=== PATIENT | female | born 1970 | race Caucasian/White ===

== ENCOUNTER 2018-11-17 13:04 | Outpatient (CLI) | payer OTHER, SELFPAY ==
[2018-11-17 13:57] LABS: Abs Immature Grans 0.01 k/cumm (0.0-0.09); Absolute Basophil Count 0.04 k/cumm (0.0-0.2); Absolute Eosinophil Count 0.09 k/cumm (0.0-0.7); Absolute Lymphocyte Count 2.09 k/cumm (1.2-3.4); Absolute Neutrophil Count 4.06 k/cumm (1.2-6.7); Basophils % 0.6; Eosinophils % 1.4; HCT 38.6 % (36.0-46.0); Immature Grans % 0.2; Lymphocytes % 31.7; Mean Corp. HGB Concentration 33.7 g/dL (32.0-36.0); Mean Corpuscular Hemoglobin 32.9 pg (27.0-33.0); Mean Corpuscular Volume 97.7 fL (80-95); Mean Platelet Volume 11.9 fL (8.0-11.0); Monocytes % 4.6; Neutrophils % 61.5; Platelet Count 248 x1000/uL (130-400); RBC 3.95 m/cumm (4.00-5.20); White Blood Cell Count 6.59 k/cumm (4.4-10.8)
[2018-11-17 14:37] LABS: C-Reactive Protein 0.19 mg/dL (0.0-0.3); TSH 1.08 uIU/mL (0.358-3.74)
== END 2018-11-17 13:24 ==
PROVIDERS: PCP Emergency Medicine; Visit Provider Emergency Medicine
DX: E03.9 Hypothyroidism, unspecified (principal); R53.83 Other fatigue
CPT/HCPCS: 36415; 84443; 85025; 86140

== ENCOUNTER 2018-11-19 13:27 | Outpatient (REF) | payer OTHER, SELFPAY ==
--- NOTE | 2018-11-19 13:10 | PAPFT_PTH ---
PATIENT: Marilyn Dillon LOC: [facility] U#:[id number] AGE/SX: 48/F ROOM: RE11/19/[address]: LETI Bansal : 1970 BED: DIS: 11/19/2018 SPEC #: [id number] RECD: 11/19/18 18:12 STATUS: ALENA REQ #: [id number] ADEBAYO: 11/19/18 13:[address]: Edel Null DEPT: [facility] Cytology RECD BY: Kami Hanna ENTERED: 11/19/18 18:13 SP TYPE: PAPFT OTHR DR: Abebe Cody, DO Tissues: 1 - CX/ENDOCX FOR PAP SMEARS Procedures: PAP THIN PREP/[facility] Screening HPV DNA PROBE Comments: [id number]
== END 2018-11-19 13:47 ==
LOC: LBN 13:27
PROVIDERS: PCP Emergency Medicine; Visit Provider Nurse Practitioner Family
DX: Z12.4 Encounter for screening for malignant neoplasm of cervix (principal); Z11.51 Encounter for screening for human papillomavirus (HPV)
CPT/HCPCS: 88142; 87624

== ENCOUNTER 2019-02-24 16:43 | Outpatient (CLI) | payer OTHER, SELFPAY ==
--- NOTE | 2019-02-24 15:45 | DI.RAD_ITS ---
SYMPTOMS/DIAGNOSIS: LEFT SHOULDER INJURY WHILE BIKING, S49.90XA, LEFT ACROMIOCLAVICULAR JOINT INJURY AC JOINTS: No clavicular or AC joint abnormality is demonstrated.
== END 2019-02-24 17:03 ==
PROVIDERS: PCP Emergency Medicine; Visit Provider Emergency Medicine
DX: S49.92XA Unspecified injury of left shoulder and upper arm, initial encounter (principal)
CPT/HCPCS: 73050

== ENCOUNTER 2019-09-17 10:38 | Outpatient (REF) | payer OTHER, SELFPAY | END 2019-09-17 10:58 | LOC: NCHCN 10:38 | PROVIDERS: PCP Emergency Medicine; Visit Provider Nurse Practitioner | DX: J06.9 Acute upper respiratory infection, unspecified (principal) | CPT/HCPCS: 87449 ==

== ENCOUNTER 2020-05-11 21:06 | Outpatient (REF) | payer OTHER, SELFPAY ==
[2020-05-11 21:55] LABS: TSH 0.81 uIU/mL (0.36-3.74)
== END 2020-05-11 21:26 ==
LOC: LBN 21:06
PROVIDERS: PCP Emergency Medicine; Visit Provider Nurse Practitioner
DX: E04.1 Nontoxic single thyroid nodule (principal)
CPT/HCPCS: 84443

== ENCOUNTER 2020-05-24 02:59 | Outpatient (CLI) | payer OTHER, SELFPAY ==
--- NOTE | 2020-05-24 08:15 | DI.US_ITS ---
EXAM: US THYROID CLINICAL HISTORY: thyroid nodule,E04.1. TECHNIQUE: Ultrasound thyroid performed using standard protocol. COMPARISON: No exams were available for comparison FINDINGS: ISTHMUS: 2 mm RIGHT LOBE: Size: 4.6 x 1.0 x 1.4 cm Echogenicity: Normal. Vascularity: Normal. Nodules: 2 centimeters spongiform nodule in the mid right lobe. 1.5 centimeters spongiform nodule wi th a larger cystic component at the lower pole. LEFT LOBE: Size: 4.8 x 1.7 x 2.2 cm Echogenicity: Normal. Vascularity: Normal. Nodules: 9 millimeter benign-appearing hypoechoic nodule at the upper pole. 1.3 centimeter hypoechoi c benign-appearing nodule at the lower pole. Cystic area with echogenic debris in the mid left lobe measuring 2 cm in greatest dimension. OTHER FINDINGS: None. IMPRESSION: Multiple bilateral thyroid nodules having benign appearance. TI-RADS category 2. DATA REPOSITORY:
== END 2020-05-24 03:19 ==
PROVIDERS: PCP Emergency Medicine; Visit Provider Nurse Practitioner
DX: E04.2 Nontoxic multinodular goiter (principal)
CPT/HCPCS: 76536

== ENCOUNTER 2020-06-23 11:44 | Outpatient (REF) | payer OTHER, SELFPAY ==
--- NOTE | 2020-06-23 10:50 | PAPFT_PTH ---
PATIENT: Marilyn Dillon LOC: [facility]N U#:[id number] AGE/SX: 49/F ROOM: RE06/23/[address]: LETI Bansal : 1970 BED: DIS: 06/23/2020 SPEC #: [id number] RECD: 06/23/20 13:31 STATUS: ALENA REQ #: [id number] ADEBAYO: 06/23/20 10:[address]: Edel Null DEPT: [facility] Cytology RECD BY: Kami Hanna ENTERED: 06/23/20 13:31 SP TYPE: PAPFT OTHR DR: Abebe Cody, Tissues: 1 - CX/ENDOCX FOR PAP SMEARS Procedures: PAP THIN PREP/[facility] Screening Comments: [id number] ([id number] [place]#)
== END 2020-06-23 12:04 ==
LOC: NCHCN 11:44
PROVIDERS: PCP Emergency Medicine; Visit Provider Nurse Practitioner Family
DX: Z12.4 Encounter for screening for malignant neoplasm of cervix (principal)
CPT/HCPCS: 88142

== ENCOUNTER 2020-07-04 00:50 | Outpatient (CLI) | payer OTHER, SELFPAY ==
--- NOTE | 2020-07-04 07:15 | DI.CT_ITS ---
EXAM: CT HEAD WO CLINICAL HISTORY: new headache,R51.9. TECHNIQUE: Imaging Protocol: Axial computed tomography images with coronal and sagittal reformatted images were created and reviewed COMPARISON: No exams were available for comparison FINDINGS: Ventricles and Extra axial spaces: Normal in size and morphology for the patient's age. Hemorrhage: None. Cerebral parenchyma: Normal. Midline shift: None. Brainstem/Cerebellum: Normal. Calvarium: Normal. Visualized Paranasal sinuses/Mastoids: Clear. Soft Tissues: Unremarkable. IMPRESSION: No acute intracranial process. RADIATION DOSE DELIVERED: 701.79mGy.cm Total DLP DATA REPOSITORY: All CT scans at this facility are submitted to the National Radiology Data Registry (NRDR) Dose Index Registry (DIR) with the [employer] (ACR). RADIATION OPTIMIZATION: All CT scans at this facility use at least one of these dose optimization te chniques: automated exposure control; mA and/or kV adjustment per patient size (includes targeted exa ms where dose is matched to clinical indication); or iterative reconstruction.
== END 2020-07-04 01:10 ==
PROVIDERS: PCP Emergency Medicine; Visit Provider Emergency Medicine
DX: R51.9 Headache, unspecified (principal)
CPT/HCPCS: 70450

== ENCOUNTER 2020-07-04 01:08 | Outpatient (CLI) | payer OTHER, SELFPAY ==
--- NOTE | 2020-07-04 10:40 | DI.MAMMO_ITS ---
EXAM: MG MAMMO SCREENING CLINICAL HISTORY: screening TECHNIQUE: Bilateral full field digital CC and MLO mammographic images were obtained with 3D tomosyn thesis and utilizing computer aided detection (CAD). COMPARISON: Available for comparison. FINDINGS: Masses/Architectural Distortion: None seen. Microcalcifications: No suspicious pleomorphic-type are seen. Skin Thickening/Nipple Retraction: None. IMPRESSION: 1. No significant interval change with no specific features of malignancy noted. 2. Unless there is more urgent need, screening mammography is recommended, as per [place] guidelines. BI-RADS Category 1 - Negative Breast Density - Category C - Heterogeneously dense The mammogram demonstrates the patient's breast tissue is dense. Dense breast tissue is very common a nd is not abnormal but dense breast tissue can make it harder to find cancer on a mammogram. Also, de nse breast tissue may increase their breast cancer risk. This information about the result of the [facility] mogram report was provided to the patient to raise their awareness. Use this report when you speak wi th the patient about their risks for breast cancer, which includes their family history. At that time , you may recommend for more screening tests (Ultrasound or MRI) as they might be useful based on the ir risk. A negative radiographic report should not delay biopsy if a dominant or clinically suspicious mass is present. Up to ten percent of cancers are not identified on mammography. A negative report may reinforce clinical impression. Adenosis and dense breasts may obscure an underlying neoplasm. False positive reports average 6 to 10%. Patient will receive a letter notifying them of these results.
== END 2020-07-04 01:28 ==
PROVIDERS: PCP Emergency Medicine; Visit Provider Nurse Practitioner Family
DX: Z12.31 Encounter for screening mammogram for malignant neoplasm of breast (principal)
CPT/HCPCS: 77063; 77067

== ENCOUNTER 2020-10-05 01:48 | Outpatient (CLI) | payer OTHER, SELFPAY ==
--- NOTE | 2020-10-05 07:30 | DI.US_ITS ---
EXAM: US THYROID CLINICAL HISTORY: f/u nodules,GOITER, HEADACHE, E04.9. TECHNIQUE: Ultrasound thyroid performed using standard protocol. COMPARISON: US US THYROID from 05/24/2020 US US THYROID from 05/24/2020 FINDINGS: The right lobe measures 5.0 x 1.3 x 1.5 cm. The left lobe measures 4.8 x 1.4 x 1.5 cm. The isthmus measures 3 millimeters in thickness. There are 2 spongiform appearing nodules in the right lobe of t he thyroid. They are unchanged in size. The left lobe shows 3 small nodules, less than 1 cm in size . On previous exam was a mostly cystic area with echogenic debris which is markedly decreased in siz e, decreasing to 7 millimeters in maximal dimension compared with 2 cm on the previous exam.. No jorge a picious nodules are seen. IMPRESSION: TI-RADS category 2. No suspicious nodules. DATA REPOSITORY:
== END 2020-10-05 01:49 ==
PROVIDERS: PCP Emergency Medicine; Visit Provider Emergency Medicine
DX: E04.9 Nontoxic goiter, unspecified (principal); R51.9 Headache, unspecified
CPT/HCPCS: 76536

== ENCOUNTER 2021-11-26 11:27 | Outpatient (REF) | payer OTHER, SELFPAY ==
--- NOTE | 2021-11-26 11:00 | PAPFT_PTH ---
PATIENT: Marilyn Dillon LOC: N U#:[id number] AGE/SX: 51/F ROOM: RE11/26/[address]: LETI Bansal : 1970 BED: DIS: 11/26/2021 SPEC #: [id number] RECD: 11/26/21 13:10 STATUS: ALENA EATON #: [id number] ADEBAYO: 11/26/21 11:[address]: Edel Null DEPT: [facility] Cytology RECD BY: Kami Hanna ENTERED: 11/26/21 13:10 SP TYPE: PAPFT ISMAEL DR: Tami Mitchell Tissues: 1 - CX/ENDOCX FOR PAP SMEARS Procedures: PAP THIN PREP/[facility] Screening HPV DNA PROBE Comments: [id number]
== END 2021-11-26 11:28 | disposition home or self-care (01) ==
LOC: LBN 11:27
PROVIDERS: PCP Family Medicine; Visit Provider Nurse Practitioner Family
DX: R87.610 Atypical squamous cells of undetermined significance on cytologic smear of cervix (ASC-US) (principal); Z12.4 Encounter for screening for malignant neoplasm of cervix; Z11.51 Encounter for screening for human papillomavirus (HPV); Z87.410 Personal history of cervical dysplasia
CPT/HCPCS: 88142; 87624

== ENCOUNTER 2021-12-27 03:16 | Outpatient (CLI) | payer OTHER, SELFPAY ==
--- NOTE | 2021-12-27 10:40 | DI.MAMMO_ITS ---
Exam(s) MAMMO SCREENING EXAM: MAMMO SCREENING CLINICAL HISTORY: screening TECHNIQUE: Mammograms were interpreted according to the usual protocol including computer analysis w [employer] CAD system, tomosynthesis and C-view imaging. COMPARISON: FINDINGS: The breasts are heterogeneously dense. No dominant mass or clumped microcalcification is identified in either breast. The current examination is compared with previous examinations including June 2020 and there is question of increased prominence of a focal area of asymmetric density seen project ed in the central posterior portion of the right breast on CC view only. Additional mammographic vie ws of the right breast are requested to include CC spot compression view. No other significant change seen. IMPRESSION: Additional mammographic views of the right breast requested as described above. Breast ultrasound ma y be indicated as well depending on the results of the additional mammographic views. BI-RADS Category 0 - Assessment Incomplete: Need additional imaging evaluation Breast Density - Category C - Heterogeneously dense
== END 2021-12-27 03:36 ==
PROVIDERS: PCP Family Medicine; Visit Provider Nurse Practitioner Family
DX: Z12.31 Encounter for screening mammogram for malignant neoplasm of breast (principal); R92.8 Other abnormal and inconclusive findings on diagnostic imaging of breast
CPT/HCPCS: 77063; 77067

== ENCOUNTER → 2022-01-08 01:28 | Outpatient (CLI) | payer OTHER, SELFPAY ==
--- NOTE | 2022-01-08 | DI.US_ITS ---
Exam(s) MG MAMMO SCREEN CALL BACK UNI US BREAST RT COMPLETE EXAM: MG MAMMO SCREEN CALL BACK UNI- Right AND COMPLETE RIGHT BREAST ULTRASOUND CLINICAL HISTORY: F/U MAMMO, ASYMMETRIC DENSITY RT BREAST. TECHNIQUE: Unilateral spot mammographic images obtained with 3D tomosynthesisand utilizing computer aided detection (CAD). . Complete RIGHT breast Ultrasound was also performed, including all 4 quadrants, the retroareolar jeannie on, and the ipsilateral axilla. COMPARISON: Prior mammograms were reviewed. This additional imaging was performed due to findings described on the recent screening mammogram of 12/27/2021. FINDINGS: DIAGNOSTIC RIGHT BREAST MAMMOGRAM: Additional 3D SPOT mammographic views performed todayrender this area less concerning. COMPLETE RIGHT BREAST ULTRASOUND: Ultrasound performed today reveals no evidence of solid nor significant cystic findings in the area o f concern on the mammogram (which appears less concerning on dedicated spot mammographic views perfor med today).. Incidentally noted at the 11 o'clock position is a single benign 3-[address] No other focal findings in all 4 quadrants nor in the retroareolar region. Scanning of the ipsilateral right axilla is negative for significant adenopathy. IMPRESSION: 1. No radiographic evidence of malignancy in the right breast. 2. No solid lesions seen on complete right breast ultrasound. The only ultrasound finding is a benig n 3 millimeter microcyst at the 11 o'clock position. Appropriate follow-up is to keep this patient on a yearly mammogram schedule, with earlier imaging i f a self detected breast change is noted.. The patient was informed of these findings and recommendations prior to leaving the department today. BI-RADS Category 2 - Benign Findings Breast Density - Category C - Heterogeneously dense Breast density Category C or D implies that the patient has dense breast tissue. Dense breast tissue can make it harder to find cancer on a mammogram. Dense breast tissue is also associated with an incr eased risk of breast cancer. This information about the result of the mammogram report was provided to the patient to raise their awareness. Use this report when you speak with the patient about their risks for breast cancer, which includes their family history. At that time, you may recommend additional screening tests (Ultrasoun d or MRI) as these tests may add significant information. A negative radiographic report should not delay biopsy if a dominant or clinically suspicious mass is present. Up to ten percent of cancers are not identified on mammography. A negative report may reinforce clinical impression. Adenosis and dense breasts may obscure an underlying neoplasm. False positive reports average 6 to 10%. Patient will receive a letter notifying them of these results.
== END ==
PROVIDERS: PCP Family Medicine; Visit Provider Nurse Practitioner Family
DX: Z12.31 Encounter for screening mammogram for malignant neoplasm of breast (principal); R92.8 Other abnormal and inconclusive findings on diagnostic imaging of breast; N60.01 Solitary cyst of right breast
CPT/HCPCS: 76642; 77063; 77067

== ENCOUNTER 2022-06-19 03:24 | Outpatient (CLI) | payer OTHER, SELFPAY ==
[2022-06-19 12:53] LABS: Calculated LDL 112 mg/dL (<100); Cholesterol 200 mg/dL (<200); HDL Cholesterol 76 mg/dL (40-60); TSH (W/Ref FT4) 0.78 uIU/mL (0.36-3.74); Triglyceride 61 mg/dL (<150)
[2022-06-20 09:00] LABS: HIV-1/2 Ag & Ab Screen Negative (Negative)
[2022-06-20 09:19] LABS: Hepatitis C Ab w Rflx HCV PCR Negative (Negative)
== END 2022-06-19 03:25 | disposition home or self-care (01) ==
LOC: LBO 03:24
PROVIDERS: PCP Family Medicine; Visit Provider Family Medicine
DX: Z00.00 Encounter for general adult medical examination without abnormal findings (principal); R53.83 Other fatigue; Z13.220 Encounter for screening for lipoid disorders; Z11.59 Encounter for screening for other viral diseases; Z11.4 Encounter for screening for human immunodeficiency virus [HIV]
CPT/HCPCS: 36415; 80061; 86803; 87389; 84443

== ENCOUNTER 2022-09-20 06:12 | Day surgery (SDC) | payer BC, SELFPAY ==
[2022-09-19 11:57] VITALS: BP 121/75; PULSE 89; RESP 14; TEMP 36.3; O2SAT 100
[2022-09-20] MEDS: Lactated Ringers 1,000 ML 80 ML IV (07:00)
--- NOTE | 2022-09-20 07:00 | W.ANESPRE ---
General Info Date of Service Date Performed: 09/20/22 Height: 5 ft 5 in Weight: 67.5 kg Body Mass Index (BMI): 24.7 Surgical Procedure: Operation Date: 09/20/22 07:35 Proposed Procedure Side Surgeon p Jonnathan Polo MD Meds Allergies and Home Medications Allergies Allergy/AdvReac Type Severity Reaction Status Date / Time No Known Allergies Allergy Verified 09/20/22 06:41 Home Medication Medication Instructions Recorded acetaminophen 500 mg tablet 500 mg PO Q6H PRN PRN #60 tabs 01/20/18 (Acetaminophen Extra Strength) ibuprofen 600 mg tablet 600 mg PO Q8H PRN PRN #60 tabs 01/20/18 valacyclovir 1 gram tablet 1,000 mg PO DAILY PRN 01/23/22 (Valtrex) bisacodyl 5 mg tablet,delayed 5 mg PO ONCE #4 tabs 08/22/22 release (Dulcolax (bisacodyl)) polyethylene glycol 3350 17 17 g PO ONCE #238 grams 08/22/22 gram/dose oral powder Current Visit Medications: Current Medications Generic Name Dose Route Start Last Admin Trade Name Freq PRN Reason Stop Dose Admin Ringer's Solution 1,000 mls @ 80 mls/hr 09/20/22 06:00 IV 10/19/22 23:59 INFUSION KENDALL IV Miscellaneous Supplies 1 each 09/20/22 06:00 Iv Access IV 10/19/22 23:59 DIRECTED KENDALL Sodium Chloride 0 ml 09/20/22 06:00 Normal Saline Flush 10 Ml Syr IV 10/19/22 23:59 PRN PRN Sodium Chloride 0 ml 09/20/22 06:00 Normal Saline 10 Ml Vial IJ 10/19/22 23:59 DIRECTED PRN Sterile Water 0 ml 09/20/22 06:00 Water,Injection,Sterile 10 Ml Vial IJ 10/19/22 23:59 DIRECTED PRN PFSH Active Problems Active Problems: Problem Status Onset Code Screening for colon cancer Z12.11 Chronic pain of right knee M25.561, G89.29 Menopausal disorder N95.9 Headache R51.9 Medical History Medical History JEANIE II (cervical intraepithelial neoplasia II) (04/10/15) Surgical History Surgical History History of ankle surgery History of arthroscopy of knee Status post colposcopy Status post repair of anterior cruciate ligament (02/06/16) Tobacco Smoking/Tobacco Use Status: Never Passive smoking exposure: No Second hand exposure: No Alcohol Alcohol Intake: current Alcohol intake frequency: a few times a week Alcohol type: wine and hard liquor Substance Use Substance use: Never Substance use type: does not use Details: alcohol: t-14 Prental History History 2 Para 2 Hx # Term Pregnancies Multiple births Hx # Pregnancies Ectopic pregnancies AB induced Hx Number of Living Children AB spontaneous Vital Signs and Lab Results Vital Signs Most Recent Vital Signs in EMR: Most Recent Vital Signs Temp Pulse Resp BP Pulse Ox 36.3 C L 89 14 121/75 100 09/19/22 11:57 09/19/22 11:57 09/19/22 11:57 09/19/22 11:57 09/19/22 11:57 Point of Care Results Point of Care Results: POC- Test(urine) Negative 09/20/22 06:43 Lab Results Blood Type / Crossmatch: No Data to Display Complete Blood Count: No Data to Display Complete Metabolic Panel: No Data to Display Liver Function Panel: No Data to Display Coagulation Panel: No Data to Display Cardiac Panel: No Data to Display Arterial Blood Gas: No Data to Display Venous Blood Gas: No Data to Display Pancreas Panel: No Data to Display Thyroid Panel: No Data to Display Infectious Disease: No Data to Display Blood Cultures: No Data to Display Toxicology Panel: No Data to Display Panel: No Data to Display Anesthesia Assessment and Plan Anesthesia History Personal History: No History of Anesthesia Complications Family History: No Family History of Anesthesia Complications Exercise Tolerance Exercise Tolerance: Metabolic Equivalents>4 Pertinent Negatives Pertinent Negatives: No Major Cardiovascular Symptoms or Complaints and No Major Pulmonary Symptoms or Complaints Cardiac & Pulmonary Exam Cardiac Exam: Normal S1/S2 Heart Sounds Pulmonary Exam: Clear Bilateral Breath Sounds Implantable Cardiac Device Does patient have a Pacemaker or an ICD?: No Airway Exam Known Difficult Airway: No Mallampati Class: 1 Mouth Opening: Normal (> 3cm) Thyromental Distance: Greater than 3 cm Neck Range of Motion: Full ROM Neck Circumference: Normal Teeth Condition: Normal Dentition ASA Classification ASA Score: ASA 2 Emergency Case?: No NPO Status NPO Status: NPO Clears >2 hours, Solids >8 hours Status Status: Negative HCG Anesthesia Plan Resuscitation Status: Full Code Anesthesia Technique: General Anesthesia Airway Planned: Natural Airway Monitors Used: Standard Monitors
[2022-09-20 07:04] VITALS: BMI 24.7
--- NOTE | 2022-09-20 08:00 | COLE_ITS ---
Date of service: 09/20/22 Time of Service: 08:07 Colonoscopy Report Procedure Description: Procedures performed: 1. Colonoscopy Preoperative diagnosis: Screening colonoscopy Postoperative diagnosis: Normal Colon, normal rectum Surgeon: Olimpia Polo Anesthesia: Ilya Indication for procedure: 51-year-old woman without any symptoms, no prior colonoscopy here for screening. Family history of colon cancer in a single/isolated grandmother. Findings: Normal Colon.? Normal Rectum. Surveillance/follow-up recommendations: 10 years Complications: None Blood loss: Minimal Prep: Excellent Procedure in detail: Written consent was obtained from the patient who was in a greement with the risks, benefits and indications of the procedure.? We went to the endoscopy suite and laid the patient in left lateral decubitus position.? Anesthesia was administered which was tolerated well.? A timeout was performed and when we are all in agreement we began the procedure. Digital rectal exam and visual examination was performed and within normal limits.? A well?lubricated colonoscope was advanced without difficulty all the way to the cecum identified by the ileocecal valve, and triangular folds and appendiceal orifice.? It was then slowly withdrawn.?? Retroflexion was performed in the rectum.? The findings/interventions are noted above. The scope was then removed and the patient tolerated the procedure well and was then taken back to the PACU in hemodynamically stable condition.
[2022-09-20 08:05] VITALS: BP 110/73; PULSE 73; RESP 16; TEMP 36.2; O2SAT 99
[2022-09-20 08:34] VITALS: BP 112/76; PULSE 61; RESP 18; TEMP 36.4; O2SAT 96
--- NOTE | 2022-09-20 09:55 | W.ANESPOSTOP ---
Postoperative Evaluation Date, Time and Location Date Performed: 09/20/22 Time Performed: 08:25 Patient Location: Day Surgery Unit Vital Signs Most Recent Imported Vital Signs: Most Recent Vital Signs Temp Pulse Resp BP Pulse Ox 36.4 C L 61 18 112/76 96 09/20/22 08:34 09/20/22 08:34 09/20/22 08:34 09/20/22 08:34 09/20/22 08:34 Pain Score Most Recent Pain Score: Most Recent Pain Score Pain Level 0 09/20/22 08:34 Assessment Mental Status: Awake (Alert & Oriented to Patient Baseline) Airway and Respiratory Function: Patent airway with normal (patient baseline) respiratory exam Cardiovascular Function: Hemodynamically Stable Hydration Status: Adequately Hydrated Nausea & Vomiting: No Nausea or Vomiting Pain: Pt. Denies Any Pain Peripheral Nerve Block: Patient did not receive a nerve block
== END 2022-09-20 08:48 | disposition home or self-care (01) ==
PROVIDERS: PCP Family Medicine; Visit Provider Student in an Organized Health Care Education/Training Program
PROC: 0DJD8ZZ Inspection of Lower Intestinal Tract, Via Natural or Artificial Opening Endoscopic (ICD-10-PCS; CPT 45378; principal; 2022-09-20 07:30)
DX: Z12.11 Encounter for screening for malignant neoplasm of colon (principal); Z80.0 Family history of malignant neoplasm of digestive organs
CPT/HCPCS: 45378; 81025

== ENCOUNTER 2023-01-31 00:21 | Outpatient (CLI) | payer BC, SELFPAY ==
--- NOTE | 2023-01-31 07:00 | DI.MAMMO_ITS ---
Exam(s) MAMMO SCREENING EXAM: MAMMO SCREENING CLINICAL HISTORY: screening,Z12.39 TECHNIQUE: Bilateral full field digital CC and MLO mammographic images were obtained with 3D tomosyn thesis and utilizing computer aided detection (CAD). COMPARISON: Available for comparison. FINDINGS: Masses/Architectural Distortion: None seen. Microcalcifications: No suspicious pleomorphic-type are seen. Skin Thickening/Nipple Retraction: None. IMPRESSION: 1. No significant interval change with no specific features of malignancy noted. 2. Unless there is more urgent need, screening mammography is recommended, as per [place] [employer] guidelines. BI-RADS Category 1 - Negative Breast Density - Category C - Heterogeneously dense Breast density category C or D implies that the patient has dense breast tissue. Dense breast tissue is very common and is not abnormal but dense breast tissue can make it harder to find cancer on a ma mmogram. Also, dense breast tissue may increase their breast cancer risk. This information about the result of the mammogram report was provided to the patient to raise their awareness. Use this report when you speak with the patient about their risks for breast cancer, which includes their family hist ory. At that time, you may recommend for more screening tests (Ultrasound or MRI) as they might be us eful based on their risk. A negative radiographic report should not delay biopsy if a dominant or clinically suspicious mass is present. Up to ten percent of cancers are not identified on mammography. A negative report may reinforce clinical impression. Adenosis and dense breasts may obscure an underlying neoplasm. False positive reports average 6 to 10%. Patient will receive a letter notifying them of these results.
== END 2023-01-31 00:41 ==
LOC: DI 00:21
PROVIDERS: PCP Family Medicine; Visit Provider Family Medicine
DX: Z12.31 Encounter for screening mammogram for malignant neoplasm of breast (principal)
CPT/HCPCS: 77063; 77067

== ENCOUNTER 2023-03-10 14:57 | Outpatient (REF) | payer BC, SELFPAY ==
--- NOTE | 2023-03-10 14:10 | PAPFT_PTH ---
PATIENT: Marilyn Dillon LOC: N U#:[id number] AGE/SX: 52/F ROOM: RE03/10/[address]: Jossy Han NP : 1970 BED: DIS: 03/10/2023 SPEC #: [id number] RECD: 03/10/23 17:08 STATUS: SUKHWINDERElmo EATON #: [id number] ADEBAYO: 03/10/23 14:[address]: Jossy Han NP DEPT: [facility] Cytology RECD BY: Chela High ENTERED: 03/10/23 17:09 SP TYPE: PAPFT OTHR DR: Tami Mitchell Tissues: 1 - CX/ENDOCX FOR PAP SMEARS Procedures: PAP THIN PREP/[facility] Screening HPV DNA PROBE Comments: [id number]
== END 2023-03-10 14:58 | disposition home or self-care (01) ==
LOC: LBN 14:57
PROVIDERS: PCP Family Medicine; Visit Provider Nurse Practitioner Women's Health
DX: Z11.51 Encounter for screening for human papillomavirus (HPV) (principal)
CPT/HCPCS: 88142; 87624

== ENCOUNTER 2023-09-05 17:56 | Outpatient (CLI) | payer BC, SELFPAY ==
[2023-09-05 15:40] LABS: MCH 31.2 pg (27.0-33.0); MCHC 34.2 % (32.0-36.0); MCV 91 fL (80-95); MPV 10.2 fL (8.0-11.0); Neutrophils % 63.2; Platelet Count 347 10^3/uL (130-400); RBC 4.17 10^6/uL (3.93-5.22); RDW 11.9 % (11.7-14.6); RDW-SD 39.6 fL; WBC 10.15 10^3/uL (4.4-10.8)
[2023-09-05 15:41] LABS: Abs Immature Grans 0.07 10^3/uL (0.0-0.06); Absolute Basophil Count 0.06 10^3/uL (0.0-0.2); Absolute Eosinophil Count 0.13 10^3/uL (0.0-0.7); Absolute Lymphocyte Count 2.98 10^3/uL (1.2-3.4); Absolute Monocyte Count 0.49 10^3/uL (0.1-0.8); Absolute Neutrophil Count 6.42 10^3/uL (1.2-6.7); Basophils % 0.6; Eosinophils % 1.3; Immature Grans % 0.7; Lymphocytes % 29.4; Monocytes % 4.8
[2023-09-05 15:42] LABS: Bilirubin Negative (Negative); Blood Negative (Negative); Clarity Clear (Clear); Glucose Negative (Negative); Ketones Negative (Negative); Leukocyte Esterase Negative (Negative); Nitrite Negative (Negative); Specific Gravity 1.025 (1.005-1.025); Urobilinogen 0.2 mg/dL (Up to 0.2); pH 5.5 (5-8)
[2023-09-05 16:03] LABS: ALT 20 U/L (14-59); AST 22 U/L (15-37); Albumin 3.9 g/dL (3.4-5.0); Alkaline Phosphatase 49 U/L (46-116); Anion Gap 7.4 mmol/L (3-11); BUN 25 mg/dL (7-18); Bilirubin, Total 0.4 mg/dL (0.2-1.0); CO2 31.6 mmol/L (21.0-32.0); CREATININE 0.9 mg/dL (0.55-1.02); Calcium 9.3 mg/dL (8.5-10.1); Chloride 101 mmol/L (98-107); Glucose 107 mg/dL (74-106); Lipase 132 U/L (16-77); Potassium 3.6 mmol/L (3.5-5.1); Sodium 140 mmol/L (136-145); Total Protein 7.4 g/dL (6.4-8.2)
--- OUTSIDE RECORDS SUMMARY | 2023-09-05 18:01 | XMS_ITS | CCD ---
Author Name Unknown Address [address] [place] [address] [phone] Organization Unknown Address [address] [place] [address] [id number] Care Team Providers Care Oracle Specialist Name Role Phone CRISTINA ADORNO Attending Physician [phone] CRISTINA ADORNO Rounding (Secondary) Physician [phone] Vital Signs Unknown or Not Available. Allergies Unknown or Not Available. Procedures Unknown or Not Available. History of Immunizations Unknown or Not Available. Problems Unknown or Not Available. Results Unknown or Not Available. Active Medications Unknown or Not Available. Medications Administered During Visit Unknown or Not Available. Encounters Encounter Diagnosis Diagnosis Code Start Date Osteoarthritis of knee due to and following [place]u [place] [id number] 08/08/2022 Social History Unknown or Not Available. Patient Decision Aids Unknown or Not Available. Discharge Instructions You were admitted to [facility] on 08/08/2022 16:00 with a principal diagnosis of Unilateral post-traumatic osteoarthritis, right knee You were discharged from [facility] on 08/08/2022 00:00 Should you have any questions prior to discharge, please contact a member of your healthcare team. If you have left the hospital and have any questions, please contact your primary care physician. Chief Complaint and Reason For Visit Unknown or Not Available. Function Status Unknown or Not Available. Plan of Care Unknown or Not Available. Referral/Transition of Care Unknown or Not Available.
== END 2023-09-05 17:57 | disposition home or self-care (01) ==
LOC: LBO 17:57
PROVIDERS: PCP Family Medicine; Visit Provider Family Medicine
DX: R10.13 Epigastric pain (principal)
CPT/HCPCS: 36415; 80053; 83690; 81003; 85025

== ENCOUNTER → 2024-03-12 00:20 | Outpatient (CLI) | payer BC, SELFPAY ==
--- NOTE | 2024-03-12 10:30 | DI.MAMMO_ITS ---
Exam(s) MAMMO SCREENING EXAM: MAMMO SCREENING CLINICAL HISTORY: screening,Z12.39. TECHNIQUE: Bilateral full field digital CC and MLO mammographic images were obtained with 3D tomosyn thesis and utilizing computer aided detection (CAD). COMPARISON: Prior mammograms were reviewed. Prior ultrasound exam December 2021 also reviewed. FINDINGS: There has been no significant change in the appearance and distribution of the fibroglandular tissue. There are no CAD designations. There are no new spiculated masses nor malignant appearing microcalcification groups. There is no significant architectural distortion nor skin thickening-retraction. IMPRESSION: No radiographic evidence of malignancy. BI-RADS Category 1 - Negative Breast Density - Category C - Heterogeneously dense Breast density Category C or D implies that the patient has dense breast tissue. Dense breast tissue can make it harder to find cancer on a mammogram. Dense breast tissue is also associated with an incr eased risk of breast cancer. This information about the result of the mammogram report was provided to the patient to raise their awareness. Use this report when you speak with the patient about their risks for breast cancer, which includes their family history. At that time, you may recommend additional screening tests (Ultrasoun d or MRI) as these tests may add significant information. A negative radiographic report should not delay biopsy if a dominant or clinically suspicious mass is present. Up to ten percent of cancers are not identified on mammography. A negative report may reinforce clinical impression. Adenosis and dense breasts may obscure an underlying neoplasm. False positive reports average 6 to 10%. Patient will receive a letter notifying them of these results.
== END ==
PROVIDERS: PCP Family Medicine; Visit Provider Family Medicine
DX: Z12.39 Encounter for other screening for malignant neoplasm of breast (principal); N95.9 Unspecified menopausal and perimenopausal disorder; Z12.31 Encounter for screening mammogram for malignant neoplasm of breast; R92.333 Mammographic heterogeneous density, bilateral breasts
CPT/HCPCS: 77063; 77067

== ENCOUNTER 2024-04-08 08:04 | Outpatient (CLI) | payer BC, SELFPAY ==
[2024-04-08 08:49] LABS: Calculated LDL 118 mg/dL (<100); Cholesterol 205 mg/dL (<200); HDL Cholesterol 80 mg/dL (40-60); TSH (W/Ref FT4) 1.43 uIU/mL (0.36-3.74); Triglyceride 38 mg/dL (<150)
== END 2024-04-08 08:05 | disposition home or self-care (01) ==
LOC: LBO 08:05
PROVIDERS: PCP Family Medicine; Visit Provider Family Medicine
DX: E03.9 Hypothyroidism, unspecified (principal); N95.9 Unspecified menopausal and perimenopausal disorder; Z13.6 Encounter for screening for cardiovascular disorders
CPT/HCPCS: 36415; 80061; 84443

== ENCOUNTER 2024-09-30 14:14 | Outpatient (CLI) | payer OTHER, SELFPAY ==
[2024-09-30 08:18] LABS: HCT 42.9 % (36.0-46.0); HGB 14.4 g/dL (11.2-15.7); MCH 32.4 pg (27.0-33.0); MCHC 33.6 % (32.0-36.0); MCV 96 fL (80-95); Platelet Count 251 10^3/uL (130-400); RBC 4.45 10^6/uL (3.93-5.22); RDW 12.1 % (11.7-14.6); WBC 6.08 10^3/uL (4.4-10.8)
[2024-09-30 08:23] LABS: Hemoglobin A1C 5.5 % (<5.7)
[2024-09-30 09:10] LABS: Iron 69 ug/dL (50-170); Total Iron Binding Capacity 255 ug/dL (250-450); Transferrin Sat 27 % (15-50)
[2024-09-30 09:20] LABS: ALT 21 U/L (14-59); AST 19 U/L (15-37); Alkaline Phosphatase 55 U/L (46-116); Anion Gap 5.8 mmol/L (3-11); BUN 20 mg/dL (7-18); Bilirubin, Total 0.63 mg/dL (0.2-1.0); CO2 30.2 mmol/L (21.0-32.0); Calcium 9.2 mg/dL (8.5-10.1); Calculated LDL 118 mg/dL (<100); Chloride 103 mmol/L (98-107); Cholesterol 213 mg/dL (<200); Estimated GFR 67.78 (mL/min/1.73m2); Ferritin 198 ng/mL (8-252); Glucose 95 mg/dL (74-106); HDL Cholesterol 87 mg/dL (40-60); Magnesium 2.2 mg/dL (1.8-2.4); Sodium 139 mmol/L (136-145); TSH 1.18 uIU/mL (0.36-3.74); Total Protein 7.5 g/dL (6.4-8.2); Triglyceride 44 mg/dL (<150); Vitamin B12 1245 pg/mL (193-986); Vitamin D 25 Total 41.1 ng/mL (30-100)
[2024-09-30 12:16] LABS: FREE T4 0.91 ng/dL (0.76-1.46)
[2024-10-01 09:32] LABS: Insulin 3.2 uIU/mL (<29.0)
== END 2024-09-30 14:15 | disposition home or self-care (01) ==
LOC: LBO 14:18
PROVIDERS: PCP Family Medicine; Visit Provider Nurse Practitioner
DX: R53.83 Other fatigue (principal); E55.9 Vitamin D deficiency, unspecified
CPT/HCPCS: 36415; 80053; 80061; 82306; 85027; 82607; 82728; 83036; 83525; 83540; 83550; 83735; 84439; 84443

== ENCOUNTER 2025-07-27 13:16 | Outpatient (REF) | payer OTHER, SELFPAY ==
--- NOTE | 2025-07-27 13:00 | PAPFT_PTH ---
PATIENT: Marilyn Dillon LOC: SONNY U#:[id number] AGE/SX: 54/F ROOM: RE07/27/[address]: Jossy Han NP : 1970 BED: DIS: 07/27/2025 SPEC #: [id number] RECD: 07/27/25 18:38 STATUS: ALENA EATON #: [id number] ADEBAYO: 07/27/25 13:[address]: Jossy Han NP DEPT: [facility] Cytology RECD BY: Kami Hanna ENTERED: 07/27/25 18:38 SP TYPE: PAPFT ISMAEL DR: Tami Mitchell Tissues: 1 - CX/ENDOCX FOR PAP SMEARS Procedures: PAP THIN PREP/[facility] Screening HPV DNA PROBE Comments: (HPV 16 & 18/45)
== END 2025-07-27 13:17 | disposition home or self-care (01) ==
LOC: LBN 13:16
PROVIDERS: PCP Family Medicine; Visit Provider Nurse Practitioner Women's Health
DX: Z12.4 Encounter for screening for malignant neoplasm of cervix (principal)
CPT/HCPCS: 88142; 87624